=== PATIENT | male | born 1940 | race Caucasian/White ===

== ENCOUNTER 2017-01-17 14:47 | Emergency (ER) | payer MEDICARE, BC ==
[2017-01-17 15:15] LABS: Hematocrit 35.8 % (42.0-52.0); Hemoglobin 12.1 gm/dL (13.5-18.0); Mean Cell Volume 85.2 fl (78-100); Mean Corpuscular Hemoglobin 28.8 pg (27-31); Mean Corpuscular Hgb Conc 33.8 g/dl (32-36); Neutrophil % 62.1 % (42-75.0); Platelet Count 226 K/mm3 (150-450); Red Cell Distribution Width 14.3 % (11.5-14.0); White Blood Count 8.1 K/mm3 (4.0-10.5)
[2017-01-17] MEDS ORDERED: NITROGLYCERIN 0.4 MG/TAB BTL SL ONE (15:24)
--- NOTE | 2017-01-17 15:28 | ERNOTE ---
Chest Pain/Cardiac HPI Chief Complaint: Chest Pain Time Seen by Provider: 01/17/17 15:16 Source: patient Exam Limitations: no limitations Immunizations: IMMUNIZATION HX Immunizations Up to Date Yes History of Influenza Vaccine Yes Hx Pneumococcal Vaccination Yes Allergies/Adverse Reactions: Allergies No Known Allergies Allergy (Verified 11/17/15 06:59) Home Medications: HOME MEDICATIONS Metoprolol Tartrate [Lopressor] 50 mg PO BID 08/20/15 [Last Taken 11/17/15 06:00 ] Simvastatin [Zocor] 40 mg PO HS 08/20/15 [Last Taken Unknown] metFORMIN HCL [Glucophage] 1,000 mg PO BIDWM 08/20/15 [Last Taken Unknown] Furosemide [Lasix] 20 mg PO DAILY 11/14/15 [Last Taken Unknown] Lisinopril [Zestril] 20 mg PO BID 11/14/15 [Last Taken Unknown] Spironolactone [Aldactone] 25 mg PO DAILY 11/14/15 [Last Taken Unknown] amLODIPine BESYLATE [Norvasc] 10 mg PO DAILY 11/14/15 [Last Taken Unknown] Aspirin 81 mg PO DAILY 01/17/17 [Last Taken Unknown] Loratadine [Claritin] 10 mg PO DAILY 01/17/17 [Last Taken Unknown] Nitroglycerin [Nitrostat] 0.4 mg SL Q5MIN PRN #50 tab 01/17/17 [Last Taken Unknown] Omeprazole 40 mg PO DAILY 01/17/17 [Last Taken Unknown] Narrative: Patient has had two episodes of chest pain. The first one two days ago after mowing the lawn for two hours in the heat (riding mower), the symptoms resolved. This morning he was digging carrots out of the garden and had pain in his chest radiating to his shoulder as well as shortness of breath and slight diaphoresis. The pain persisted when he went back inside, denies 'pain' but has chest tightness 1/10 currently. 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 He had a CABG twentysome years ago and no problems since Review of Systems - Review of Systems Constitutional: Absent: recent illness, fever EYE: Absent: eye pain ENT: Absent: nose pain, nasal drainage, sore throat Respiratory: Present: See HPI, shortness of breath. Absent: cough Cardiology: Present: See HPI, chest pain Gastrointestinal/Abdominal: Absent: nausea, vomiting, abdominal pain Genitourinary: Present: no symptoms reported Musculoskeletal: Absent: back pain Neurological: Absent: headache, weakness, numbness - Patient's Past Medical History Patient History - Medical: Diabetes Type 2 Patient History - Cardiac/Respiratory: Hypertension, Hyperlipidemia, Myocardial Infarction Patient History - Cancer: No Hx of Cancer Patient History - Surgical Procedures: Colonoscopy, Coronary Bypass Surgery Patient History - Other: None - Social History Living Situations: home Abuse History: No History of abuse Psych History: No pertinent hx Smoking Status: Never smoker Have you smoked in the past 12 months: No Do you dip or chew tobacco: No Alcohol Use: none Drug Use: none - Immunizations Immunizations Up to Date: Yes Hx Pneumococcal Vaccination: Yes History of Influenza Vaccine: Yes Physical Exam - Physical Exam General Appearance: Present: wd/wn, alert, no apparent distress, obese Respiratory: Present: no respiratory distress, normal breath sounds, no accessory muscle use, lungs clear Cardiovascular/Chest: Present: regular rate, rhythm, no murmur Gastrointestinal/Abdominal: Present: normal bowel sounds, nontender, nondistended, soft Extremity Exam: Present: no edema Neurological Exam: Present: alert, oriented, normal mood/affect Skin Exam: Present: normal color, warm/dry ED Progress - Results and Orders Patient's Lab Results:: I have reviewed the patient's lab results. - Vital Signs Patient's Vital Signs:: I have reviewed the patient's vital signs. Vital Signs: Vital Signs 01/17/17 14:51 Pulse Rate 75 Respiratory 17 Rate Blood Pressure 152/52 O2 Sat by Pulse 97 Oximetry - EKG EKG: NSR, RBBB, unchanged from - 09/2015, other - no acute changes EKG read: Interp. by me - Progress/Reassessment Chief Complaint: Chest Pain Progress Note-Subjective: 01/17/17 15:51 discussed result with patient and family, discussed limits of test to definitly rule out angina as cause of pain , offered admission patient declined discussed follow up with cardiology and return to the ER for returning pain Departure - Departure Clinical Impression: Chest pain Qualifiers: Chest pain type: unspecified Qualified Code(s): R07.9 - Chest pain, unspecified Disposition: Home self-care Condition: Good Instructions: Chest Pain Observation Referrals: Jose Elias Narvaez MD [Primary Care Provider] - Harmeet Kingsley MD [Associate] - Prescriptions: Nitroglycerin [Nitrostat] 0.4 mg SL Q5MIN PRN #50 tab PRN Reason: Chest Pain
[2017-01-17 15:32] LABS: INR 0.96 INR (0.90-1.10); Partial Thrombolplastin Time 22.7 Seconds (24-32)
[2017-01-17 15:37] LABS: ALT 19 U/L (19-67); AST 10 U/L (0-48); Albumin * 3.7 gm/dl (3.4-5.0); Alkaline Phosphatase * 104 U/L (50-170); Anion Gap 15.8 mmol/L (6.8-13.8); BUN/Creatinine Ratio 14.3 (9.0-21.6); Bilirubin, Total 0.5 mg/dL (0.0-1.1); Blood Urea Nitrogen 16 mg/dL (6-23); Ca. Corrected For Albumin 8.7 mg/dL (8.4-10.2); Calcium * 8.8 mg/dL (7.9-10.9); Carbon Dioxide 23.6 mmol/L (24-32.6); Chloride 106 mmol/L (97-106); Glucose * 134 mg/dL (70-110); Potassium 4.4 mmol/L (3.4-4.6); Sodium 141 mmol/L (132-142); Total Protein 6.9 gm/dL (6.2-8.2)
[2017-01-17 15:38] LABS: Troponin I Less than 0.017 ng/ml (0.00-0.10)
[2017-01-17 16:50] VITALS: BP 142/68
== END 2017-01-17 16:00 | disposition home or self-care (01) ==
LOC: ER 14:47
DX: R07.89 Other chest pain (principal); I45.10 Unspecified right bundle-branch block; I25.2 Old myocardial infarction

== ENCOUNTER 2017-03-17 09:17 | Day surgery (SDC) | payer MEDICARE, BC ==
--- NOTE | 2017-03-17 10:31 | OR ---
Anesthesia Pre Procedure Eval Date of Service: 03/17/17 Pre Procedure Evaluation: Last Vital Signs Temp 36.4 C L 03/17/17 09:25 Pulse 52 L 03/17/17 09:25 Resp 18 03/17/17 09:25 BP 140/67 03/17/17 09:25 Pulse Ox 99 03/17/17 09:25 Anesthesia Pre Procedure Evaluation DATE: 03/17/2017 TIME: 1025 INDICATIONS: Spinal stenosis, degenerative disc disease, low back and right radicular pain. PAST MEDICAL HISTORY: Mr. Platt has had a long history of low back with radicular pain. He has had epidurals in the past, most recently October 2015. He' s had very good relief with the epidurals and currently has been feeling well until approximately 2 months ago. At approximately 2 months ago he has had increasing low back pain which does occasionally radiate to the right leg initially extending to just above the knee. He has been unable to deal with the pain with activity modification and ibuprofen however this current episode has been increasing to the point of more interventional therapies being required. History of GERD: No History of smoking: No History of sleep apnea: No EXAM: Heart regular; lungs clear ASSESSMENT OF MEDICAL STATUS: Appropriate candidate for epidural injection PLANNED PROCEDURE: Lumbar epidural steroid injection Home Medications: HOME MEDICATIONS Metoprolol Tartrate [Lopressor] 50 mg PO BID 08/20/15 [Last Taken 11/17/15 06:00 ] Simvastatin [Zocor] 40 mg PO HS 08/20/15 [Last Taken Unknown] metFORMIN HCL [Glucophage] 1,000 mg PO BIDWM 08/20/15 [Last Taken Unknown] Furosemide [Lasix] 20 mg PO DAILY 11/14/15 [Last Taken Unknown] Lisinopril [Zestril] 20 mg PO BID 11/14/15 [Last Taken Unknown] Spironolactone [Aldactone] 25 mg PO DAILY 11/14/15 [Last Taken Unknown] amLODIPine BESYLATE [Norvasc] 10 mg PO DAILY 11/14/15 [Last Taken Unknown] Loratadine [Claritin] 10 mg PO DAILY 01/17/17 [Last Taken Unknown] Omeprazole 40 mg PO DAILY 01/17/17 [Last Taken Unknown] Aspirin [Aspirin Enteric Coated] 81 mg PO DAILY 03/16/17 [Last Taken Unknown] Fluticasone Propionate [Flonase] 2 spray NS DAILY PRN 03/16/17 [Last Taken Unknown]
[2017-03-17] MEDS ORDERED: DEXAMETHASONE SOD PHOSPHATE 10 MG/ML VIAL IJ ONE (11:24)
[2017-03-17] MEDS ORDERED: LIDOCAINE HCL/PF 5 ML VIAL IJ ONE (11:24)
[2017-03-17] MEDS ORDERED: IOPAMIDOL 20 ML VIAL IJ ONE (11:25)
--- NOTE | 2017-03-17 12:03 | OR ---
Anesthesia Procedure Note - Anesthesia Procedure Note Date of Service: 03/17/17 Narrative: Vital Signs - Last Taken Temp 36.4 C L 03/17/17 11:50 Pulse 55 L 03/17/17 11:50 Resp 18 03/17/17 11:50 BP 141/67 03/17/17 11:50 Pulse Ox 97 03/17/17 11:50 O2 Oxygen Delivery Method Room Air 03/17/17 11:54 ANESTHESIA PROCEDURE NOTE Date of Procedure: 03/17/2017 Time of procedure: 1120. Performed by: Raphael Richardson CRNA, METAL SANDER, MSN Lockstitch Cup Setter: Samantha Katz RN. Preprocedure diagnosis: Lumbar spinal stenosis, degenerative disc disease, low back and radicular pain. Post procedure diagnosis: Same. Procedure: Epidural Steroid Injection L5-S1. Indications: Low back and right radicular pain. Findings: See below. Details of the procedure: After the MRI report and films were reviewed, the patient was interviewed where risks and the procedure were explained. The patient was then brought to [facility] and was placed in the prone position. The back was prepped with DuraPrep and draped in a sterile fashion. The lumbar area was identified under fluoroscopy and, although the space appeared contracted, the L4 5 space was localized with 1% lidocaine solution. The epidural space was attempted using loss of resistance technique using a #20- gauge Touhy needle. After several manipulations wasn't able to find a loss of resistance therefore the procedure was repeated at the L5 S1 level and using 1 mL of Isovue was injected while the C-arm was positioned in the lateral orientation. The C-arm was then readjusted to an AP view and Isovue 200 3 milliliters was injected demonstrating a spread at the affected area. Dexamethasone 10mg and lidocaine 1% 5 mL was injected, stylette was replaced and the epidural needle removed. A Band-Aid was then applied to the injection site, patient was placed in a 22.3 position for 5 minutes then returned to ASU with good relief of pain, from a 5/10 to 0/10. EBL: None. Energy: 36.2 Seconds, 22.3 mGy Fluids: N/A. Specimen: N/A. Post procedure condition: The patient tolerated the procedure well. No complications were noted. Thank you for this consultation. Raphael Richardson CRNA, MSN, METAL SANDER
[2017-03-17 12:40] VITALS: BP 132/78
== END 2017-03-17 09:18 | disposition home or self-care (01) ==
LOC: AMB 09:17
PROVIDERS: ATTEND Internal Medicine
PROC: 3E0S3BZ Introduction of Anesthetic Agent into Epidural Space, Percutaneous Approach (ICD-10-PCS; 2017-03-17)
PROC: 3E0S33Z Introduction of Anti-inflammatory into Epidural Space, Percutaneous Approach (ICD-10-PCS; principal; 2017-03-17 10:00)
DX: M48.06 Spinal stenosis, lumbar region (principal); M51.36 Other intervertebral disc degeneration, lumbar region; Z68.32 Body mass index [BMI] 32.0-32.9, adult

== ENCOUNTER 2017-05-16 05:18 | Emergency (ER) | payer MEDICARE, BC ==
[2017-05-16] MEDS ORDERED: NITROGLYCERIN 0.4 MG/TAB BTL SL PRN (05:33)
--- NOTE | 2017-05-16 05:33 | ERNOTE ---
Chest Pain/Cardiac HPI Chief Complaint: Chest Pain Time Seen by Provider: 05/16/17 05:19 Source: patient, family, EMS, RN notes reviewed Exam Limitations: no limitations Immunizations: IMMUNIZATION HX Immunizations Up to Date Yes History of Influenza Vaccine Yes Hx Pneumococcal Vaccination Yes Allergies/Adverse Reactions: Allergies No Known Allergies Allergy (Verified 05/16/17 05:30) Home Medications: HOME MEDICATIONS Metoprolol Tartrate [Lopressor] 50 mg PO BID 08/20/15 [Last Taken 11/17/15 06:00 ] Simvastatin [Zocor] 40 mg PO HS 08/20/15 [Last Taken Unknown] metFORMIN HCL [Glucophage] 1,000 mg PO BIDWM 08/20/15 [Last Taken Unknown] Furosemide [Lasix] 20 mg PO DAILY 11/14/15 [Last Taken Unknown] Lisinopril [Zestril] 20 mg PO BID 11/14/15 [Last Taken Unknown] Loratadine [Claritin] 10 mg PO DAILY 01/17/17 [Last Taken Unknown] Omeprazole 40 mg PO DAILY 01/17/17 [Last Taken Unknown] Fluticasone Propionate [Flonase] 2 spray NS DAILY PRN 03/16/17 [Last Taken Unknown] Aspirin [Aspirin Enteric Coated] 325 mg PO DAILY 05/16/17 [Last Taken 05/16/17 04:00] Narrative: Patient has been having chest pain off and on since Tuesday night. This morning the pain came back and the patient became more worried about it. He states that the last time he saw his is technician, Dr. Kingsley, he was told to go to [place] the next time he had a round of chest pain. He did have a CABG 23 years ago. Timing: intermittent Severity/Quality: moderate, tightness Location: substernal Chest Pain Radiation: no radiation Activities at Onset: rest, sleep Modifying Factors - Improves: Present: nothing Modifying Factors - Worsens: Present: nothing Nitro Today/Relief: no nitro taken today Aspirin Treatment Today: 325 mg x 1 Associated Symptoms: Present: dizziness. Absent: headache, shortness of breath , diaphoresis, weakness, back pain Prior Chest Pain/Cardiac Workup: Reports: prior chest pain, cardiac cath Review of Systems - Review of Systems Constitutional: Absent: recent illness, fever, chills EYE: Present: no symptoms reported ENT: Absent: ear pain, sore throat Respiratory: Present: shortness of breath. Absent: cough Cardiology: Present: chest pain. Absent: palpitations Gastrointestinal/Abdominal: Absent: nausea, vomiting, diarrhea, abdominal pain Genitourinary: Present: no symptoms reported Musculoskeletal: Absent: back pain, muscle pain, muscle stiffness Neurological: Absent: anxiety, depressed Endocrine: Present: no symptoms reported Hematologic/Lymphatic: Present: no symptoms reported Psych: Present: no symptoms reported - Patient's Past Medical History Patient History - Medical: Diabetes Type 2 Patient History - Cardiac/Respiratory: Hypertension, Hyperlipidemia, Myocardial Infarction Patient History - Cancer: No Hx of Cancer Patient History - Surgical Procedures: Colonoscopy, Coronary Bypass Surgery Patient History - Other: None - Social History Living Situations: home Abuse History: No History of abuse Psych History: No pertinent hx Smoking Status: Former smoker Alcohol Use: none Drug Use: none - Immunizations Immunizations Up to Date: Yes Hx Pneumococcal Vaccination: Yes History of Influenza Vaccine: Yes Physical Exam - Physical Exam General Appearance: Present: wd/wn, mild distress, anxious, obese Head Exam: Present: normal inspection, no evidence of injury Eye Exam: Normal inspection: bilateral, EOMI: bilateral Ears, Nose, Throat: Present: normal ENT inspection, normal pharynx Neck: Present: normal inspection, nontender Respiratory: Present: no respiratory distress, normal breath sounds, no accessory muscle use, chest nontender, lungs clear Cardiovascular/Chest: Present: regular rate, rhythm, no murmur Gastrointestinal/Abdominal: Present: normal bowel sounds, nontender, nondistended, soft Back Exam: Present: normal inspection, normal range of motion Extremity Exam: Present: normal inspection, non-tender, normal range of motion Neurological Exam: Present: alert, oriented, normal mood/affect, no motor/ sensory deficits Skin Exam: Present: normal color, warm/dry Lymphatic Exam: Present: no adenopathy ED Progress - Results and Orders Patient's Lab Results:: I have reviewed the patient's lab results. Results and Orders: Laboratory Results - last 24 hr 05/16/17 05/16/17 05/16/17 05:40 05:40 05:40 WBC 6.9 RBC 3.84 L Hgb 10.9 L Hct 33.1 L MCV 86.2 MCH 28.4 MCHC 32.9 RDW 13.7 Plt Count 215 MPV 9.9 H Immature Gran % (Auto) 0.60 H Immature Gran # (Auto) 0.04 H Neutrophils % 62.8 Lymphocytes % 24.8 Monocytes % 6.6 Eosinophils % 4.2 H Basophils % 1.0 Nucleated RBC % 0.0 Neutrophils # 4.4 Lymphocytes # 1.7 Monocytes # 0.5 Eosinophils # 0.3 Absolute Basophils 0.1 PT 9.6 INR (Anticoag Therapy) 0.96 PTT ([place]) 23.9 L Sodium 144 H Plasma Sodium 146 H Potassium 3.6 Chloride 110 H Carbon Dioxide 26.6 Anion Gap 11.0 BUN 12 Creatinine 0.84 Est GFR (Non-Af Amer) 94 BUN/Creatinine Ratio 14.3 Random Glucose 200 H Mean Blood Glucose Hemoglobin A1c Calcium 8.1 Calcium Adj for Albumin 8.6 Total Bilirubin 0.4 AST 13 ALT 17 L Alkaline Phosphatase 120 Troponin I Less than 0.017 Total Protein 6.0 L Albumin 3.0 L 05/16/17 05:40 WBC RBC Hgb Hct MCV MCH MCHC RDW Plt Count MPV Immature Gran % (Auto) Immature Gran # (Auto) Neutrophils % Lymphocytes % Monocytes % Eosinophils % Basophils % Nucleated RBC % Neutrophils # Lymphocytes # Monocytes # Eosinophils # Absolute Basophils PT INR (Anticoag Therapy) PTT ([place]) Sodium Plasma Sodium Potassium Chloride Carbon Dioxide Anion Gap BUN Creatinine Est GFR (Non-Af Amer) BUN/Creatinine Ratio Random Glucose Mean Blood Glucose 160 Hemoglobin A1c 7.4 H Calcium Calcium Adj for Albumin Total Bilirubin AST ALT Alkaline Phosphatase Troponin I Total Protein Albumin - Vital Signs Patient's Vital Signs:: I have reviewed the patient's vital signs. Vital Signs: Vital Signs 05/16/17 05:24 Temperature 37.1 C Pulse Rate 96 Respiratory 16 Rate Blood Pressure 178/74 O2 Sat by Pulse 97 Oximetry - EKG EKG: supraventricular tachycardia, RBBB, other - marked Left axis deviation - Progress/Reassessment Chief Complaint: Chest Pain Progress:: Unchanged - Transfer of Care Physician Sign Out: Sirisha Wood Brief History: Patient with history of CAD, s/p CABG 23 years ago. Has been having intermittent chest pain since Tuesday. This morning was worse, so patient came here. He states he was told by Dr. Kingsley that he should go to [place] and be seen if his chest pain came back. First Troponin negative, waiting on second. Receiving Physician: Joseph Bravo Pending Results: Labs Expected Disposition: Discharge Departure Clinical Impression: Chest pain Qualifiers: Chest pain type: precordial pain Qualified Code(s): R07.2 - Precordial pain - Departure Disposition: Home Follow Up Needed Condition: Good Instructions: Angina Pectoris, [id number] Referrals: Jose Elias Narvaez MD [Primary Care Provider] - Harmeet Kingsley MD [Associate] - (Call today to be seen as soon as he recommends)
[2017-05-16 05:56] LABS: Hematocrit 33.1 % (42.0-52.0); Hemoglobin 10.9 gm/dL (13.5-18.0); Mean Cell Volume 86.2 fl (78-100); Mean Corpuscular Hemoglobin 28.4 pg (27-31); Mean Corpuscular Hgb Conc 32.9 g/dl (32-36); Mean Platelet Volume 9.9 fl (6.0-9.5); Neutrophil # 4.4 K/mm3 (1.3-6.0); Neutrophil % 62.8 % (42-75.0); Platelet Count 215 K/mm3 (150-450); Red Blood Count 3.84 M/mm3 (4.7-6.0); Red Cell Distribution Width 13.7 % (11.5-14.0); White Blood Count 6.9 K/mm3 (4.0-10.5)
[2017-05-16 06:00] LABS: Prothrombin Time (Patient) 9.6 Seconds (9.0-11.0)
[2017-05-16 06:07] LABS: ALT 17 U/L (19-67); AST 13 U/L (0-48); Alkaline Phosphatase * 120 U/L (50-170); BUN/Creatinine Ratio 14.3 (9.0-21.6); Bilirubin, Total 0.4 mg/dL (0.0-1.1); Blood Urea Nitrogen 12 mg/dL (6-23); Ca. Corrected For Albumin 8.6 mg/dL (8.4-10.2); Calcium * 8.1 mg/dL (7.9-10.9); Carbon Dioxide 26.6 mmol/L (24-32.6); Chloride 110 mmol/L (97-106); Glucose * 200 mg/dL (70-110); INR 0.96 INR (0.90-1.10); Partial Thrombolplastin Time 23.9 Seconds (24-32); Potassium 3.6 mmol/L (3.4-4.6); Sodium 144 mmol/L (132-142); Troponin I Less than 0.017 ng/ml (0.00-0.10)
[2017-05-16 07:37] LABS: Hemoglobin A1C 7.4 % (4.00-6.0)
[2017-05-16 10:46] VITALS: BP 158/78
== END 2017-05-16 09:35 | disposition short-term general hospital (02) ==
LOC: ER 05:18
DX: R07.2 Precordial pain (principal); Z53.29 Procedure and treatment not carried out because of patient's decision for other reasons